=== PATIENT | female | born 1940 | race Caucasian/White ===

== ENCOUNTER 2016-09-10 12:16 | Emergency (ER) | payer MEDICARE, OTHER ==
[~2016-09-10] VITALS: Wt 71.2 kg
[2016-09-10] MEDS ORDERED: ACETAMINOPHEN 325 MG TAB PO ONE (14:00)
--- NOTE | 2016-09-10 16:05 | RADRPT ---
PROCEDURE: XR Chest. CLINICAL INDICATION: Fall. TECHNIQUE: Single frontal view of the chest was obtained. COMPARISON: No. FINDINGS: The film is under penetrated which limits bone detail. The soft tissues are normal. There are dege nerative osteophytes in the thoracic spine. The heart, cardiomediastinal silhouette and hilar struc tures are normal. The pulmonary vasculature is normal. There is a left-sided aorta. The lungs are c lear. The costophrenic angles are normal. IMPRESSION: 1. Spondylosis of the thoracic spine with no evidence of active cardiopulmonary disease. 2. No acute bony fracture, pneumothorax pulmonary contusion or hemothorax is identified. RPTAT:AAJJ Physician Juliano Date Time Electronically viewed and signed by Jose Enrique Dos Santos Physician on 09/10/2016 16:05 MICHAEL/
--- NOTE | 2016-09-10 16:07 | RADRPT ---
PROCEDURE: Bilateral knee x-ray CLINICAL INDICATION: Fall. TECHNIQUE: Lateral, sunrise and tunnel as well as AP weightbearing view of the knees obtained. COMPARISON: None FINDINGS: A small osteophyte is noted off the dorsal super articular surface of the left patella. There are f aint calcifications at the insertion site of the patellar tendon to the anterior left tibial tubercl e. No fracture or joint space effusion is noted in the left knee. There are faint soft tissue calcification superior and inferior to the patella and the right knee. The bony elements are normal with no fracture identified. IMPRESSION: 1. Osteoarthritis of the left knee with a small spur forming off the super articular surface of the left patella. 2. No evidence of a fracture involving either knee. RPTAT:AAJJ Physician Juliano Date Time Electronically viewed and signed by Physician Juliano on 09/10/2016 16:07 MICHAEL/
--- NOTE | 2016-09-10 16:09 | RADRPT ---
PROCEDURE: XR Wrist. CLINICAL INDICATION: Fall. TECHNIQUE: AP, lateral, scaphoid and oblique views of the right wrist were performed. COMPARISON: No prior studies are available for comparison. FINDINGS: There is a old fracture deformity of the right ulnar styloid process. There is an old internally fi xated fracture deformity involving the distal radius. The carpal bones appear anatomically aligned. There is a bone fragment between the scaphoid bone and lunate bone and the AP view. The metacarpa l bones are normal. IMPRESSION: 1. Old internally fixated fracture deformity to the radial styloid process, distal metadiaphysis and central articular surface of the right radius. 2. Old healed fracture deformity of the right ulnar styloid process. 3. Small bone density, with possible avulsion fracture fragment or loose body, projecting across th e scapholunate joint space. RPTAT:AAJJ Physician Juliano Date Time Electronically viewed and signed by Physician Juliano on 09/10/2016 16:09 MICHAEL/
--- NOTE | 2016-09-10 16:09 | RADRPT ---
PROCEDURE: XR finger. CLINICAL INDICATION: Status post fall with post traumatic left fifth finger pain TECHNIQUE: PA, oblique and lateral views of the left fifth finger were obtained. COMPARISON: None available. FINDINGS: Mineralization is diffusely decreased. No fracture or osseous lesion is identified. There is no cam int dislocation. Mild osteoarthrosis of the metacarpal phalangeal and interphalangeal joints is pre sent. Soft tissues are unremarkable. No radiopaque foreign body is present. RPTAT:HJJR IMPRESSION: Demineralization and mild osteoarthrosis without acute post traumatic abnormality of the left fifth finger. Physician Jamseet Date Time Electronically viewed and signed by Physician Jasmeet on 09/10/2016 16:09 /
[2016-09-10] MEDS ORDERED: ACET-141 PO (16:30)
[2016-09-10] MEDS ORDERED: TRAM-40 PO (16:30)
--- NOTE | 2016-09-10 16:35 | ERD ---
ER Documentation Chief Complaint Date/Time DATE: 09/10/16 TIME: 16:32 Chief Complaint right wrist forearm pain from a fall today and bilat knee pain. no loc HPI This 75-year-old female fell today after being bumped in the store. She has pain in her bilateral kneecaps, left fifth digit, right wrist and left chest wall. She denies any head injury, loss of consciousness, vomiting, weakness or bowel bladder incontinence. There is no bleeding or lacerations noticed. ROS All systems reviewed and are negative except as per history of present illness. Medications Home Meds Active Scripts Acetaminophen* (Acetaminophen*) 500 MG Extra Strength Tablet, 500 MG PO Q4H Y for PAIN AND OR ELEVATED TEMP for 15 Days, TAB Prov:ZAFAR COFFEY MD 09/10/16 Tramadol Hcl* (Ultram*) 50 Mg Tablet, 50 MG PO Q6H Y for PAIN, #15 TAB Prov:ZAFAR COFFEY MD 09/10/16 Allergies Allergies: Coded Allergies: No Known Allergy (Unverified , 09/10/16) PMhx/Soc Hx Alcohol Use: No Hx Substance Use: No Hx Tobacco Use: No Physical Exam Vitals Vital Signs Date Time Temp Pulse Resp B/P Pulse Ox O2 Delivery O2 Flow Rate FiO2 09/10/16 12:52 98.0 80 21 190/94 98 Physical Exam Const: [] Alert, [id number] per Head: Atraumatic Eyes: Normal Conjunctiva ENT: Normal External Ears, Nose and Mouth. Neck: Full range of motion..~ No meningismus. Resp: Clear to auscultation bilaterally. Minimal tenderness in the left chest wall approximately T10 without crepitance or deformities Cardio: Regular rate and rhythm, no murmurs Abd: Soft, non tender, non distended. Normal bowel sounds Skin: No petechiae or rashes Back: No midline or flank tenderness Ext: No cyanosis, or edema. Tenderness in the bilateral patella without deformities. There is no effusions, calf swelling or weakness or deficits. There is some mild tenderness in the left fifth digit proximally without deformities, restricted range of motion weakness. There is mild tenderness in the right wrist without significant swelling, deformities, restricted range of motion weakness. Neur: Awake and alert Psych: Normal Mood and Affect Results 24 hrs Current Medications Medications (Trade) Dose Ordered Sig/Akil Route PRN Reason Start Time Stop Time Status Last Admin Dose Admin Acetaminophen (Tylenol Tab) 650 mg ONCE ONCE PO 09/10/16 14:00 09/10/16 14:01 DC 09/10/16 13:57 Procedures/MDM Chest X-ray 1V Interpreted by me: Soft Tissue: No acute abnormalities Bones: No acute abnormalities Mediastinum/Cardiac Silhouette/Lungs: [No acute abnormalities]. Impression- no acute findings on 1 view chest x-ray X-ray left pinky finger 2V Interpreted by me: Bones: No fracture Joints: No dislocation Foreign body: None. Impression-no acute findings on left pinky x-ray X-ray Wrist 3V Interpreted by me: Scaphoid: [Normal] Bones: [No fracture] Joints: [No dislocation] Foreign body: [None]. Impression have degenerative changes with possible loose body versus avulsion right wrist with hardware in place. X-ray bilateral knee 4V with patella interpreted by me: Bones: No fracture Joints: No dislocation Foreign body: None. Impression-normal bilateral knee x-ray Patient is placed in right wrist Velcro brace Patient has multiple orthopedic complaints after mechanical fall today. She does have previous history of right wrist fracture with open reduction and internal fixation. There is no significant findings of acute fracture although there are some possible avulsion or foreign bodies which are uncertain if acute or chronic. The degree of patient's pain suggest that chronic but patient will be discharged home with primary care and orthopedic follow-up. She was advised she may need authorization from primary care doctor. There is no signs or symptoms of head injury, neck injury, neurologic deficit, additional complications due to her fall today. She will treated with tramadol and Tylenol at home. Departure Diagnosis: Primary Impression: Sprain of finger, left Encounter type: initial encounter Qualified Code: S63.619A - Sprain of finger, left, initial encounter Additional Impressions: Right wrist sprain Encounter type: initial encounter Qualified Code: S63.501A - Right wrist sprain, initial encounter Fall Encounter type: initial encounter Qualified Code: W19.XXXA - Fall, initial encounter Knee contusion Encounter type: initial encounter Laterality: unspecified laterality Qualified Code: S80.00XA - Contusion of knee, unspecified laterality, initial encounter Patient Instructions: Contusion, Lower Extremity, Fall, Mechanical, Wrist Sprain Additional Instructions: CHEQ YOLANDA PARA MAS DOLOR EN1-2 SEMANA. NO PUEDE JULIANA UN NUEVA FRCATURA HOY. Cheque otro vez con lobo doctor primario en el proximo childers or regresa para mas o nueva simptomas. ZAFAR COFFEY MD Sep 10, 2016 16:35
== END 2016-09-10 16:56 | disposition home or self-care (01) ==
LOC: FTE 12:16
DX: S63.617A Unspecified sprain of left little finger, initial encounter (principal); S63.501A Unspecified sprain of right wrist, initial encounter; S80.01XA Contusion of right knee, initial encounter; S80.02XA Contusion of left knee, initial encounter; R91.8 Other nonspecific abnormal finding of lung field; W18.39XA Other fall on same level, initial encounter; Y92.512 Supermarket, store or market as the place of occurrence of the external cause
CPT/HCPCS: 71010; 73140

== ENCOUNTER 2018-09-09 06:48 | Day surgery (SDC) | payer MEDICARE, OTHER ==
[~2018-09-09] VITALS: Ht 154.9 cm; Wt 75.6 kg
[~2018-09-09 06:48] MED LIST: ACET-141 PO; TRAM50TA PO
[2018-09-09] MEDS ORDERED: RANI150T5 PO (08:45)
[2018-09-09] MEDS ORDERED: MTF1000T PO (08:45)
[2018-09-09] MEDS ORDERED: ASPI-903 PO (08:45)
[2018-09-09] MEDS ORDERED: ANAS1TAB PO (08:45)
[2018-09-09] MEDS ORDERED: ATOR-2 PO (08:45)
[2018-09-09] MEDS ORDERED: FENO200 PO (08:45)
[2018-09-09] MEDS ORDERED: LOSA50TA14 PO (08:45)
[2018-09-09] MEDS ORDERED: PREG150C PO (08:45)
[2018-09-09] MEDS ORDERED: OMEP20CA16 PO (08:45)
[2018-09-09] MEDS ORDERED: LEVO75TA5 PO (08:45)
[2018-09-09] MEDS ORDERED: GLIP10TA14 PO (08:45)
[2018-09-09 08:50] VITALS: Ht 154.9 cm; Wt 75.6 kg
--- NOTE | 2018-09-09 09:18 | PREAC ---
Date/Time of Note Date/Time of Note DATE: 09/09/18 TIME: 09:16 Anesthesia Eval and Record Evaluation Time Pre-Procedure Interview DATE: 09/09/18 TIME: 09:16 Age 77 Sex female NPO: 8 hrs Preoperative diagnosis ABD PAIN, CHANGE IN BOWEL HABITS Planned procedure EGD AND COLONOSCOPY Past Medical History Past Medical History: Includes Cardio: HTN, Dyslipidemia Endo: Diabetes, Hypothyroid GI: Obesity Heme: Other (HX LEFT BREAST CA S/P SURGERY AND RADIATION) Surgery & Anesthesia Issues No known issue Meds Anticoagulation: Yes Beta Daniel within 24 hr: No Reason Beta Daniel not given: Pt. not on B-Daniel Active Scripts Tramadol Hcl* (Ultram*) 50 Mg Tablet, 50 MG PO Q6H PRN for PAIN, #15 TAB Prov:ZAFAR COFFEY MD 09/10/16 Reported Medications Anastrozole* (Arimidex*) 1 Mg Tablet, 1 MG PO DAILY, #30 TAB 09/09/18 Pregabalin* (Lyrica*) 150 Mg Capsule, 150 MG PO DAILY, CAP 09/09/18 Aspirin* (Aspirin* Chew) 81 Mg Tab.chew, 81 MG PO DAILY, TAB.CHEW 09/09/18 Levothyroxine Sodium* (Levothyroxine Sodium*) 75 Mcg Tablet, 75 MCG PO BEFORE BREAKFAST, #30 TAB 09/09/18 Atorvastatin* (Atorvastatin*) 80 Mg Tablet, 80 MG PO QHS, #30 TAB 09/09/18 Fenofibrate* (Fenofibrate*) 200 Mg Cap, 200 MG PO DAILY, CAP 09/09/18 Glipizide* (Glipizide*) 10 Mg Tablet, 10 MG PO DAILY, TAB 09/09/18 Metformin* (Glucophage*) 1,000 Mg Tablet, 1000 MG PO BID, #60 TAB 09/09/18 Losartan Potassium* (Losartan Potassium*) 50 Mg Tablet, 50 MG PO DAILY, TAB 09/09/18 Ranitidine Hcl* (Ranitidine Hcl*) 150 Mg Tablet, 150 MG PO HS, #30 TAB 09/09/18 Omeprazole* (Omeprazole*) 20 Mg Capsule.dr, 20 MG PO DAILY, #30 CAP 09/09/18 Discontinued Scripts Acetaminophen* (Acetaminophen*) 500 MG Extra Strength Tablet, 500 MG PO Q4H PRN for PAIN AND OR ELEVATED TEMP for 15 Days, TAB Prov:ZAFAR COFFEY MD 09/10/16 Meds reviewed: Yes Allergies Coded Allergies: No Known Allergy (Unverified , 09/10/16) Allergies Reviewed: Yes Labs/Studies Labs Reviewed: Other (NONE) test: N/A Studies: ECG (EKG STRIP TODAY NSR) Pre-procedure Exam Airway: Adequate mouth opening, Adequate thyromental dist Mallampati: Mallampati II Teeth: Normal Lung: Normal (EDENTULOUS) Heart: Normal ASA Physical Status ASA physical status: 3 Emergency: None Planned Anesthetic General/MAC: MAC Planned Pain Management Parenteral pain med, Local by surgeon Pre-operative Attestations Prior to commencing anesthesia and surgery, the patient was re-evaluated, there was verification of: *The patient's identity *The results of appropriate recent lab work and preoperative vital signs *The above evaluation not changing prior to induction *Anesthetic plan, risk benefits, alternative and complications discussed with patient/family; questions answered; patient/family understands, accepts and wishes to proceed. KIMBERLY PAYNE Sep 09, 2018 09:18
[2018-09-09] MEDS ORDERED: PROPOFOL 20 ML ONE (09:19)
[2018-09-09 09:25] VITALS: BP 181/79; PULSE 58; RESP 18
[2018-09-09] MEDS ORDERED: ACETAMINOPHEN 500 MG TAB PO PRN (10:00)
[2018-09-09] MEDS ORDERED: ONDANSETRON 4 MG INJ IV PRN (10:00)
--- NOTE | 2018-09-09 10:02 | PAC ---
Date/Time of Note Date/Time of Note DATE: 09/09/18 TIME: 10:01 Post-Anesthesia Notes Post-Anesthesia Note Last documented vital signs VITALS AT 1001: BP 152/66 HR 58 SPO2 100% RR 16 TEMP 97.5 PAIN 0/10 Vital Signs Date Temp Pulse Resp B/P (MAP) Pulse Ox O2 O2 Flow FiO2 Time Delivery Rate 09/09/18 97.7 58 18 181/79 97 Room Air 09:25 (113) Activity: WNL Respiratory function: WNL Cardiovascular function: WNL Mental status: Baseline Pain reasonably controlled: Yes Hydration appropriate: Yes Nausea/Vomiting absent: Yes KIMBERLY PAYNE Sep 09, 2018 10:02
[2018-09-09 10:15] VITALS: BP 164/70; PULSE 59; RESP 15
--- NOTE | 2018-09-10 07:39 | CONS ---
DATE OF ADMISSION: 09/09/2018 DATE OF CONSULTATION: PATIENT NAME: GABY HENSON Dear Dr. Pardo: I thank you very much for this kind referral. HISTORY OF PRESENT ILLNESS: Ms. Gaby Henson is a 77-year-old female patient who has been referred to me for further evaluation of change in the bowel habit. The patient has history of colon polyps. Her appetite has been good and she is not losing any weight. The patient complains of upper abdomi nal pain not responding to therapy with omeprazole and Zantac. She is on baby aspirin a day. No his tory of gallstones or liver disease. She is hypertensive. She has diabetes. No heart disease, lung problem or kidney disease. She has got hyperlipidemia. She has hypothyroidism. She has history of breast cancer for which she has undergone lumpectomy and radiation. SOCIAL HISTORY: Nonsmoker. No alcohol abuse. FAMILY HISTORY: No family history of gastrointestinal tract neoplasm. ALLERGIES: NO DRUG ALLERGIES. MEDICATIONS: 1. Omeprazole 20 mg p.o. daily. 2. Ranitidine 150 mg p.o. daily. 3. Losartan 50 mg p.o. daily. 4. Metformin 1000 mg p.o. b.i.d. 5. Glipizide 10 mg p.o. daily. 6. Fenofibrate 200 mg p.o. daily. 7. Atorvastatin 80 mg p.o. daily. 8. Levothyroxine 75 mcg p.o. daily. 9. Aspirin 81 mg p.o. daily. 10. Tramadol 50 mg p.o. p.r.n. 11. Lyrica 150 mg p.o. daily. 12. Anastrozole 1 mg p.o. daily. PHYSICAL EXAMINATION: VITAL SIGNS: She is 5 feet tall and weighs 176 pounds, BMI 34. Blood pressure 142/84. HEART: Normal heart sounds. LUNGS: Clear. ABDOMEN: Soft. No masses. Normal bowel sounds. NEUROLOGIC: Normal neurological exam. IMPRESSION: 1. Change in the bowel habit. 2. History of colon polyps. 3. Upper abdominal pain, not responding to therapy with omeprazole and Zantac. 4. The patient is on baby aspirin a day. 5. Hypertension. 6. Diabetes mellitus. 7. Hyperlipidemia. 8. Hypothyroidism. 9. Arthritis. 10. Status post surgery and radiation for breast cancer. 11. Obesity. PLAN: 1. The patient was strongly advised to lose weight. 2. Follow up with the primary MD for the management of obesity and hypertension. 3. Colonoscopy and upper endoscopy for further evaluation. 4. Because of the patient's age and multiple medical problems, obesity, she needs monitored anesthes ia care. The procedures and possible complications are well explained to the patient. She understands and con sents to the procedures. I thank you once again. With warmest personal regards, Dictated By: GREG OHARA/JÚNIOR Conf#: [id number] DID#: [id number] CC: Dr. Pardo;*EndCC*
== END 2018-09-09 11:53 | disposition home or self-care (01) ==
LOC: GIL 06:48
PROVIDERS: ATTEND Internal Medicine Gastroenterology
DX: R19.4 Change in bowel habit (principal); D12.5 Benign neoplasm of sigmoid colon; K64.8 Other hemorrhoids; K29.30 Chronic superficial gastritis without bleeding; K44.9 Diaphragmatic hernia without obstruction or gangrene; K21.9 Gastro-esophageal reflux disease without esophagitis; I10 Essential (primary) hypertension; E78.5 Hyperlipidemia, unspecified; E03.9 Hypothyroidism, unspecified; Z79.82 Long term (current) use of aspirin; Z79.84 Long term (current) use of oral hypoglycemic drugs
CPT/HCPCS: 82962; 88305; 88312